=== PATIENT | female | born 1975 | race Caucasian/White ===

== ENCOUNTER 2017-11-08 12:00 | Emergency (ER) | payer OTHER ==
--- NOTE | 2017-11-08 12:12 | EDPHY ---
H & P Stated Complaint: bloating/flatus epigastric pain for 3 weeks started post taking abx Time Seen by Provider: 11/08/17 12:12 - Personal History LMP (Females 10-55): 22-28 Days Ago Current Tetanus/Diphtheria Vaccine: Yes - Medical/Surgical History Hx Asthma: No Hx Chronic Respiratory Disease: No Hx Diabetes: No Hx Cardiac Disease: No Hx Renal Disease: No Hx Cirrhosis: No Hx Alcoholism: No Hx HIV/AIDS: No Hx Splenectomy or Spleen Trauma: No Other PMH: denies - Social History Smoking Status: Former smoker Constitutional: Initial Vital Signs Temperature (C) 36.9 C 11/08/17 12:04 Heart Rate 79 11/08/17 12:04 Respiratory Rate 17 11/08/17 12:04 Blood Pressure 118/72 11/08/17 12:04 O2 Sat (%) 96 11/08/17 12:04 O2 Delivery Mode Room Air Allergies/Adverse Reactions: Latex, Natural Rubber Allergy (Verified 11/08/17 12:03) Home Medications: Medication Instructions Recorded NK [No Known Home Meds] 11/08/17 Medical Decision Making - Diagnostics Imaging Results: Imaging Impressions Abdomen Ultrasound 11/08/17 12:30 Impression: 1. Minimal debris/sludge seen within the gallbladder when the patient was moved into a decubitus position. There is no shadowing cholelithiasis, secondary evidence of cholecystitis, or bile duct dilatation. 2. Subtle echogenic area in the lateral right hepatic lobe measuring 1.2 x 1.5 x 0.8 cm, perhaps representing a small cavernous hemangioma (versus some accentuated periportal fat). Given the lack of any preceding studies, however, follow-up sonographic reevaluation in 6 months is recommended to assure stability. Findings were discussed with Alejandro Rodriguez MD at 13:27, on 11/08/2017. If there is ongoing concern regarding the patient's right upper quadrant pain, perhaps a nuclear medicine hepatobiliary scan with gallbladder ejection fraction could be considered to exclude dyskinesia. Imaging: Discussed imaging studies w/ installation & maintenance executive Radiologist, I viewed and interpreted images myself ED Course/Re-evaluation: CHIEF COMPLAINT: Abdominal pain, flatus HISTORY OF PRESENT ILLNESS: The patient is a 42 y/o female complaining of intermittent "stomach discomfort" for the last 3 weeks and increasing flatus over the last week after eating. She used a Z-pack prior to symptom onset for possible ear infection that was actually a cerumen impaction. Since then she's had intermittent abdominal discomfort. For the last week after eating she's noticed a pattern in which the pain slowly moves from her upper left quadrant to her mid abdomen and then right upper quadrant. She denies vomiting, diarrhea , flank pain, urinary symptoms, recent illness, or recent trauma. Urgent care referred her here for evaluation. Her only abdominal surgery was a . REVIEW OF SYSTEMS: A 10 point review of systems was performed and is negative with the exception of the elements mentioned in the history of present illness. PHYSICAL EXAM: HR, BP, O2 Sat, RR. Temp noted General Appearance: Alert, well hydrated, appropriate, and non-toxic appearing. Head: Atraumatic without scalp tenderness or obvious injury Eyes: Pupils equal, round, reactive to light and accommodation, EOMI, no trauma , no injection. Nose: Atraumatic, no rhinorrhea, clear. Throat: Mucus membranes moist. Neck: Supple Respiratory: No retractions, no distress, no wheezes, and no accessory muscle use. Lungs are clear to auscultation bilaterally. Cardiovascular: Regular rate and rhythm, no murmurs, rubs, or gallops. Good capillary refill all extremities. Gastrointestinal: Abdomen is soft, nontender, non-distended, no masses, no rebound, no guarding, no peritoneal signs. Musculoskeletal: Normal active ROM of all extremities, atraumatic. Neurological: Alert, appropriate, and interactive. The patient has non-focal cranial nerves, motor, sensory, and cerebellar exam. Skin: No rashes, good turgor, no nodules on palpation. Past medical history: Denies Past surgical history: Family history: Noncontributory Social history: with 2 children. Lives in [place]. PCP: Dr. Ibarra DIAGNOSTICS/PROCEDURES/CRITICAL CARE TIME: Abdominal US: minimal gallbladder sludge, no obstruction or dilation. Incidental subtle echogenic finding in liver requiring 6-month follow up. DIFFERENTIAL DIAGNOSIS: The differential diagnosis for the patient's abdominal pain included but was not limited to ovarian cyst, pelvic inflammatory disease, ovarian torsion, urinary tract infection, ectopic , cholecystitis, and appendicitis. MEDICAL DECISION MAKING: This is a normally healthy 42 y/o female who presents with a 3-week history of intermittent abdominal pain and flatus over the last week. Her exam is completely benign. Symptoms are aggravated by eating, which could indicate gallbladder etiology. Plan for IV, labs, and abdominal US. 1L IV NS ordered. Labs are unremarkable. US shows minimal gall bladder sludge without acute obstruction or dilation. Abdomen remains benign on reexamination. Patient will be discharged with standard care and follow up instructions. Return precautions discussed. She is comfortable with this plan. - Data Points Laboratory Results: Laboratory Results 11/08/17 12:30 11/08/17 12:30 11/08/17 11/08/17 11/08/17 12:30 12:30 12:30 WBC 9.76 10^3/uL H 10^3/uL (3.80-9.50) RBC 4.65 10^6/uL 10^6/uL (4.18-5.33) Hgb 13.9 g/dL g/dL (12.6-16.3) Hct 41.6 % % (38.0-47.0) MCV 89.5 fL fL (81.5-99.8) MCH 29.9 pg pg (27.9-34.1) MCHC 33.4 g/dL g/dL (32.4-36.7) RDW 12.6 % % (11.5-15.2) Plt Count 244 10^3/uL 10^3/uL (150-400) MPV 10.8 fL fL (8.7-11.7) Neut % (Auto) 68.9 % % (39.3-74.2) Lymph % (Auto) 24.4 % % (15.0-45.0) [place] % (Auto) 4.8 % % (4.5-13.0) Eos % (Auto) 1.0 % % (0.6-7.6) Baso % (Auto) 0.6 % % (0.3-1.7) Nucleat RBC Rel Count 0.0 % % (0.0-0.2) Absolute Neuts (auto) 6.72 10^3/uL H 10^3/uL (1.70-6.50) Absolute Lymphs (auto) 2.38 10^3/uL 10^3/uL (1.00-3.00) Absolute Monos (auto) 0.47 10^3/uL 10^3/uL (0.30-0.80) Absolute Eos (auto) 0.10 10^3/uL 10^3/uL (0.03-0.40) Absolute Basos (auto) 0.06 10^3/uL 10^3/uL (0.02-0.10) Absolute Nucleated RBC 0.00 10^3/uL 10^3/uL (0-0.01) Immature Gran % 0.3 % % (0.0-1.1) Immature Gran # 0.03 10^3/uL 10^3/uL (0.00-0.10) Sodium 143 mEq/L mEq/L (135-145) Potassium 3.8 mEq/L mEq/L (3.3-5.0) Chloride 105 mEq/L mEq/L (97-110) Carbon Dioxide 23 mEq/l mEq/l (22-31) Anion Gap 15 mEq/L mEq/L (8-16) BUN 11 mg/dL mg/dL (7-23) Creatinine 0.7 mg/dL mg/dL (0.6-1.0) Estimated GFR > 60 Glucose 93 mg/dL mg/dL (70-100) Calcium 9.2 mg/dL mg/dL (8.5-10.4) Total Bilirubin 1.2 mg/dL mg/dL (0.1-1.4) Conjugated Bilirubin 0.4 mg/dL mg/dL (0.0-0.5) Unconjugated Bilirubin 0.8 mg/dL mg/dL (0.0-1.1) AST 16 IU/L IU/L (14-46) ALT 23 IU/L IU/L (9-52) Alkaline Phosphatase 74 IU/L IU/L (38-126) Total Protein 7.5 g/dL g/dL (6.3-8.2) Albumin 4.3 g/dL g/dL (3.5-5.0) Lipase 109 IU/L IU/L (23-300) Beta HCG, Qual NEGATIVE Departure - Departure Disposition: Home, Routine, Self-Care Clinical Impression: Abdominal pain Qualifiers: Abdominal location: generalized Qualified Code(s): R10.84 - Generalized abdominal pain Condition: Good Instructions: Acute Abdominal Pain (ED) Additional Instructions: Follow up with your primary care provider this week for continued symptoms. Return to the ED for worsening of condition. You will require a follow up ultrasound in 6 months for incidental finding on the ultrasound today. Referrals: CARLEE IBARRA [Primary Care Provider] - As per Instructions Report Scribed for: Alejandro Rodriguez Report Scribed by: Caty Perez Date of Report: 11/08/17 Time of Report: 13:33
[2017-11-08] MEDS ORDERED: NS 1,000 ML IV ONE (12:26)
[2017-11-08 12:44] LABS: PLATELET COUNT 244 10^3/uL (150-400)
[2017-11-08 13:45] VITALS: BP 110/67
== END 2017-11-08 13:45 | disposition home or self-care (01) ==
DX: R10.84 Generalized abdominal pain (principal); Z87.891 Personal history of nicotine dependence; Z91.040 Latex allergy status

== ENCOUNTER → 2018-06-10 | Outpatient (CLI) | payer BC, OTHER | LOC: BMCIMAGING 08:52 | PROVIDERS: ATTEND Family Medicine | DX: K76.9 Liver disease, unspecified (principal) ==